=== PATIENT | female | born 1980 | race African-American/Black ===

== ENCOUNTER 2017-02-05 15:35 | Emergency (ER) | payer BC, OTHER ==
[2017-02-05 15:50] VITALS: TEMP 97.9; BMI 36.9
--- NOTE | 2017-02-05 16:01 | PDOC ---
History of Present Illness - General Chief Complaint: Chest Pain Stated Complaint: CHEST PAIN Time Seen by Provider: 02/05/17 15:49 History Source: Patient - History of Present Illness Presenting Symptoms: Chest Pain Timing/Duration: reports: intermittent Chest Pain Radiation: reports: no radiation Past History - Past Medical History Allergies/Adverse Reactions: Allergies Allergy/AdvReac Type Severity Reaction Status Date / Time No Known Drug Allergies Allergy Verified 04/04/14 19:37 Home Medications: Ambulatory Orders Amlodipine Besylate [Norvasc -] 5 mg PO DAILY 02/05/17 HTN: Yes - Surgical History Abdominal Surgery: Yes (hernia repair) Cholecystectomy: Yes - Immunization History Immunization Up to Date: Yes - Psycho/Social/Smoking Cessation Hx Anxiety: No Suicidal Ideation: No Smoking Status: No Smoking History: Never smoked Have you smoked in the past 12 months: No Number of Cigarettes Smoked Daily: 0 Hx Alcohol Use: No Drug/Substance Use Hx: No Substance Use Type: None Review of Systems - Review of Systems Constitutional: No: Chills, Fever Respiratory: No: Cough, Shortness of Breath Cardiac (ROS): Yes: Chest Pain. No: Lightheadedness, Palpitations *Physical Exam - Vital Signs Last Vital Signs Temp Pulse Resp BP Pulse Ox 97.9 F 89 20 151/102 100 02/05/17 15:47 02/05/17 16:05 02/05/17 16:05 02/05/17 16:05 02/05/17 16:05 - Physical Exam General Appearance: Yes: Appropriately Dressed. No: Apparent Distress HEENT: positive: Normal Voice Neck: positive: Supple Respiratory/Chest: positive: Lungs Clear, Normal Breath Sounds. negative: Respiratory Distress Cardiovascular: positive: Regular Rate, S1, S2 Gastrointestinal/Abdominal: positive: Soft. negative: Tender Extremity: positive: Normal Inspection Integumentary: positive: Dry, Warm Neurologic: positive: Fully Oriented, Alert, Normal Mood/Affect Heart Score/ECG Review - History History: Slightly suspicious - Electrocardiogram EKG: Normal - Age Age: </= 45 - Risk Factors Risk Factors Heart Score: Yes Hx Hypertension Based on the list above the patient has:: 1-2 risk factors - Troponin Troponin: </= normal limit - Score Heart Score - Total: 1 - ECG Intrepretation Comment:: 02/05/17 16:28 Twelve-lead EKG was performed and reviewed by me. There is normal sinus rhythm with a normal rate. The axis is normal. The intervals are normal. There are no ST or T wave abnormalities. Impression: Normal twelve-lead EKG ED Treatment Course - LABORATORY CBC & Chemistry Diagram: 02/05/17 16:00 02/05/17 16:00 - ADDITIONAL ORDERS Additional order review: Laboratory Results 02/05/17 16:00 Sodium 139 Potassium 3.3 L Chloride 104 Carbon Dioxide 26 Anion Gap 9 BUN 6 L D Creatinine 0.9 D Creat Clearance w eGFR > 60 Random Glucose 110 H Calcium 8.2 L Total Bilirubin 0.3 AST 10 L D ALT 17 Alkaline Phosphatase 76 Creatine Kinase 115 Troponin I < 0.02 Total Protein 7.3 Albumin 3.6 02/05/17 16:00 RBC 4.35 MCV 73.4 L MCHC 31.8 L RDW 17.7 H MPV 8.5 Neutrophils % 62.6 Lymphocytes % 28.7 D Monocytes % 6.6 Eosinophils % 1.0 D Basophils % 1.1 - RADIOLOGY Radiology Studies Ordered: Category Date Time Status CHEST X-RAY PORTABLE* [RAD] Stat Radiology 02/05/17 16:05 Taken Medical Decision Making - Medical Decision Making 02/05/17 16:01 37-year-old female history of hypertension, denies diabetes though documented on prior visit, presents with chest pain. Patient reports non-radiating, sharp , intermittent right-sided chest pain that started 3 days ago, last for a few seconds. Nothing makes it better or worse. Denies shortness of breath, diaphoresis, nausea, vomiting. No palpitations, leg pain or swelling. No history of similar pain in the past. No obvious risk factors for DVT/PE. No tobacco history or illicit drug use. see exam Atypical CP Significantly hypertensive in ED, rest of exam unremarkable Not great story for ACS, PERCs out, doubt dissection -manage HTN -ekg -trop -cxr -dispo pending 02/05/17 16:25 02/05/17 16:27 02/05/17 16:29 02/05/17 17:23 Labs/ekg/cxr unremarkable. BP improved to 153/99. Pt asx. Will dc to f/u with PMD for management og BP. Reasons to return d/w pt 02/05/17 17:24 *DC/Admit/Observation/Transfer Diagnosis at time of Disposition: Chest pain Qualifiers: Chest pain type: unspecified Qualified Code(s): R07.9 - Chest pain, unspecified - Discharge Dispostion Disposition: HOME Condition at time of disposition: Improved - Patient Instructions Printed Discharge Instructions: DI for Atypical Chest Pain Additional Instructions: Your blood pressure was elevated in the ED. Please make an appointment with your PMD for further management
[2017-02-05 16:18] LABS: BASOPHIL 1.1 % (0-2.0); MCH 23.4 pg (25.7-33.7); MCHC 31.8 g/dl (32.0-36.0); MEAN CELL VOLUME 73.4 fl (80-96); MEAN PLT VOLUME 8.5 fl (7.5-11.1); NEUTROPHILS 62.6 % (42.8-82.8); PLATELET COUNT 302 K/MM3 (134-434); RDW 17.7 % (11.6-15.6); WHITE BLOOD COUNT 7.3 K/mm3 (4.0-10.0)
[2017-02-05 16:41] LABS: ALBUMIN 3.6 g/dl (3.4-5.0); ANION GAP 9 (8-16); CALCIUM 8.2 mg/dL (8.5-10.1); CO2 26 mmol/L (21-32); CREATININE 0.9 mg/dL (0.55-1.02); GLUCOSE,RANDOM 110 mg/dL (74-106); SGOT/AST 10 U/L (15-37); SGPT/ALT 17 U/L (12-78)
[2017-02-05 16:45] LABS: ALK PHOS 76 U/L (45-117); BILIRUBIN,TOTAL 0.3 mg/dL (0.2-1.0); TOT PROT 7.3 g/dl (6.4-8.2); TROPONIN I < 0.02 ng/ml (0.00-0.05)
[2017-02-05 17:25] VITALS: BP 153/99; PULSE 84
--- NOTE | 2017-02-07 13:35 | EKG ---
Test Reason : Blood Pressure : / mmHG Vent. Rate : 089 BPM Atrial Rate : 089 BPM P-R Int : 198 ms QRS Dur : 092 ms QT Int : 354 ms P-R-T Axes : 043 038 020 degrees QTc Int : 430 ms NORMAL SINUS RHYTHM NORMAL ECG WHEN COMPARED WITH ECG OF 04-APR-2014 20:26, NO SIGNIFICANT CHANGE WAS FOUND Confirmed by DENNIS RIVERA MD ([id number]) on 02/07/2017 1:35:48 PM Referred By: Confirmed By:DENNIS RIVERA MD
== END 2017-02-05 17:29 | disposition home or self-care (01) ==
LOC: JER 15:35
DX: R07.9 Chest pain, unspecified (principal); I10 Essential (primary) hypertension
CPT/HCPCS: 36415; 71010-TC; 80053; 82550; 84484; 85025; 93005; 93010; 99284-25

== ENCOUNTER 2019-09-01 18:55 | Emergency (ER) | payer BC, OTHER ==
[2019-09-01 19:00] VITALS: BP 144/95; PULSE 101; TEMP 98.9; BMI 38.6
--- NOTE | 2019-09-01 19:29 | PDOC ---
History of Present Illness - General Chief Complaint: Allergic Reaction Stated Complaint: ALLERGIC REACTION Time Seen by Provider: 09/01/19 19:02 History Source: Patient Exam Limitations: No Limitations Past History - Past Medical History Allergies/Adverse Reactions: Allergies Allergy/AdvReac Type Severity Reaction Status Date / Time No Known Drug Allergies Allergy Verified 09/01/19 19:00 Home Medications: Ambulatory Orders Amlodipine Besylate [Norvasc -] 5 mg PO DAILY 02/05/17 COPD: No HTN: Yes - Surgical History Abdominal Surgery: Yes (hernia repair) Cholecystectomy: Yes - Immunization History Immunization Up to Date: Yes - Psycho Social/Smoking Cessation Hx Smoking Status: No Smoking History: Never smoked Have you smoked in the past 12 months: No Number of Cigarettes Smoked Daily: 0 Hx Alcohol Use: No Drug/Substance Use Hx: No Substance Use Type: None *Physical Exam - Vital Signs Last Vital Signs Temp Pulse Resp BP Pulse Ox 98.9 F 101 H 18 144/95 98 09/01/19 18:57 09/01/19 18:57 09/01/19 18:57 09/01/19 18:57 09/01/19 18:57 - Physical Exam General Appearance: No: Apparent Distress HEENT: positive: Normal Voice, Other (+soft tissue swelling along R lateral neck , no change in skin color, nontender to touch, no induration, no fluctuance, no airway involvement). negative: Muffled/Hoarse voice, Pharyngeal Erythema, Tonsillar Exudate, Tonsillar Erythema Neck: positive: Supple. negative: Decreased range of motion, Thyromegaly Respiratory/Chest: positive: Lungs Clear, Normal Breath Sounds. negative: Respiratory Distress Cardiovascular: positive: Regular Rhythm, Regular Rate, S1, S2. negative: Murmur Integumentary: positive: Normal Color. negative: Ecchymosis, Bruising Neurologic: positive: Alert, Normal Mood/Affect ED Treatment Course - RADIOLOGY Radiology Studies Ordered: Category Date Time Status SOFT TISSUE NECK AND HEAD US [US] Stat Ultrasound 09/01/19 19:20 Ordered Medical Decision Making - Medical Decision Making 39 y/o F hx of HTN presents with R lateral neck swelling which she noted today around 6 PM. Mentions she got a flu shot yesterday. Otherwise, denies taking anything new. Denies fever, throat pain, sob, cp, abd pain, n/v, rash, trauma. Unclear cause of swelling Not suspicious for cellulitis, abscess, DVT No concern for airway involvement Does not appear as allergic reaction D/W Dr. Lopez - recommends soft tissue US 09/01/19 19:25 Ultrasound shows simple cyst in the right side of the neck measuring 7 x 6 x 8 mm No other acute findings noted Will refer patient to ENT and surgery for further eval 09/01/19 20:03 Discharge - Discharge Information Problems reviewed: Yes Clinical Impression/Diagnosis: Cyst of neck Condition: Stable Disposition: HOME - Admission No - Additional Discharge Information Prescription Drug Monitoring Program (I-STOP) results: I-STOP not reviewed - Follow up/Referral Referrals: Karthikeyan Ortiz MD [Primary Care Provider] - Merlin Santizo MD [Staff Physician] - 2 Days Dominic Mai MD [Staff Physician] - 2 Days - Patient Discharge Instructions Additional Instructions: Thank you for choosing [facility]. It was a pleasure taking care of you. Your ultrasound shows simple cyst in the right side of neck measuring 7x6x8 mm in size You were referred to ENT and surgery for further evaluation Return to the Emergency Department if your symptoms worsen or persist, you have fever, shortness of breath, increased swelling, change in color of skin or other concerning symptoms. - Post Discharge Activity
== END 2019-09-01 20:12 | disposition home or self-care (01) ==
LOC: JERFT 18:55
DX: D23.4 Other benign neoplasm of skin of scalp and neck (principal); I10 Essential (primary) hypertension
CPT/HCPCS: 76536-TC; 99281-25

== ENCOUNTER 2020-10-17 05:30 | Emergency (ER) | payer BC, OTHER ==
[2020-10-17 05:52] VITALS: BP 139/88; PULSE 89; TEMP 98.5; BMI 32.3
== END 2020-10-17 07:38 | disposition home or self-care (01) ==
LOC: JER 05:30
DX: H65.193 Other acute nonsuppurative otitis media, bilateral (principal)
CPT/HCPCS: 99283-25